=== PATIENT | female | born 1990 | race Caucasian/White ===

== ENCOUNTER 2017-01-03 08:37 | Inpatient (IN) ==
[2017-01-03] MEDS: LACTATED RINGERS 1,000 ML IV SCH (10:00)
[2017-01-03] MEDS ORDERED: CITRIC ACID/SODIUM CITRATE 30 ML UDCUP PO ONE (15:06)
[2017-01-03] MEDS ORDERED: ceFAZolin 2,000 MG in PREMIX 1 EACH IV ONE (15:06)
[2017-01-03] MEDS ORDERED: FAMOTIDINE 20 MG/2 ML VIAL IV ONE (15:06)
[2017-01-03] MEDS ORDERED: LACTATED RINGERS 1,000 ML IV ONE (15:10)
[2017-01-03 15:36] LABS: Basophils % 0.4 % (0.0-0.8); Eosinophils # 0.2 10*3/uL (0.0-0.87); Eosinophils % 2.3 % (0.00-10.9); Hematocrit 31.6 VOL% (35.7-47.0); Immature Granulocytes % 1.8 %; Immature Granulocytes Absolute 0.14 #; Lymphocytes % 25.5 % (21.3-54.2); Mean Corpuscular HGB Conc 34.8 GM/DL (32-36); Mean Corpuscular Hemoglobin 28 PG (27-34); Mean Corpuscular Volume 81.4 FL (87-102); Mean Platelet Volume 10.9 FL (9.6-12.0); Monocytes # 0.5 10*3/uL (0.11-0.8); Monocytes % 6.2 % (1.7-12.7); Neutrophils # 4.9 10*3/uL (1.4-7.4); Neutrophils % 63.8 % (38.7-73.9); Platelet Count 208 T/CUMM (130-400); Red Blood Count 3.88 MC/CUMM (3.8-5.5); White Blood Count 7.8 T/CUMM (4-12)
[2017-01-03] MEDS ORDERED: OXYTOCIN/LR 20 UNIT/1,000 ML BAG IV ONE (16:00)
[2017-01-03 16:06] LABS: Albumin 2.4 G/DL (3.4-5.0); Bilirubin,Total 0.5 MG/DL (0.2-1.0); Calcium 8.4 MG/DL (8.5-10.1); Osmolality,Calculated 274.5 MOS/KG (273-304); Potassium 4.3 MMOL/L (3.5-5.1)
[2017-01-03] MEDS ORDERED: TISSUE ADHESIVE 1 EACH APPLICATOR TOP ONE (17:10)
[2017-01-03 17:29] LABS: Cord Arterial Blood HCO3 17.3 MMOL/L
[2017-01-03 17:33] LABS: Cord Venous Blood PCO2 46.8 MMHG; Cord Venous Blood PO2 20.2
[2017-01-03] MEDS ORDERED: MIDAZOLAM 2 MG/2 ML VIAL ONE (17:54)
[2017-01-03] MEDS ORDERED: MORPHINE 10 MG/10 ML VIAL ONE (17:54)
[2017-01-03] MEDS ORDERED: ONDANSETRON 4 MG/2 ML VIAL ONE (17:55)
[2017-01-03] MEDS ORDERED: ACETAMINOPHEN 1,000 MG/100 ML VIAL IV ONE (17:58)
[2017-01-03] MEDS ORDERED: diphenhydrAMINE 50 MG/1 ML VIAL IV ONE (18:39)
[2017-01-03 18:52] LABS: Apearance,Urine CLEAR (Clear); Bilirubin,Urine Negative (Negative); Blood, Urine Negative (Negative); Glucose,Urine (UA) Negative (Negative); Ketones,Urine Negative (Negative); Mucus,Urine Occasional /LPF (Occasional); Nitrite,Urine Negative (Negative); Protein,Urine Negative; RBC,Urine 2 /HPF (0-4); Urine Color Yellow (Yellow); Urine Specific Gravity 1.014 (1.001-1.035); Urine Urobilinogen < 2.0 EU/DL (0.2-1.0); WBC,Urine 1 /HPF (0-6)
[2017-01-03] MEDS ORDERED: hydrOXYzine HCL 25 MG/1 ML VIAL IM PRN (20:22)
[2017-01-03] MEDS ORDERED: ONDANSETRON 4 MG/2 ML VIAL IV PRN ×2 (20:22→23:05)
[2017-01-03] MEDS ORDERED: HYDROmorphone 2 MG/1 ML VIAL IV PRN (20:22)
[2017-01-03] MEDS ORDERED: diphenhydrAMINE 50 MG/1 ML VIAL IV PRN (20:22)
[2017-01-03] MEDS ORDERED: SODIUM CHLORIDE 0.9% 1,000 ML IV SCH (20:30)
[2017-01-03] MEDS ORDERED: LACTATED RINGERS 1,000 ML IV SCH (20:30)
[2017-01-04] MEDS ORDERED: ceFAZolin 1,000 MG in SYRINGE 1 EACH IV SCH (00:30)
[2017-01-04] MEDS ORDERED: diphenhydrAMINE 50 MG/1 ML VIAL IV PRN (00:46)
[2017-01-04 01:19] LABS: Basophils % 0.4 % (0.0-0.8); Eosinophils # 0.2 10*3/uL (0.0-0.87); Eosinophils % 2.2 % (0.00-10.9); Hemoglobin 9.4 GM/DL (12.0-16.0); Lymphocytes # 2.4 10*3/uL (1.4-4.0); Lymphocytes % 22.7 % (21.3-54.2); Mean Corpuscular HGB Conc 34.8 GM/DL (32-36); Mean Corpuscular Hemoglobin 28 PG (27-34); Mean Corpuscular Volume 80.6 FL (87-102); Mean Platelet Volume 11.2 FL (9.6-12.0); Monocytes # 0.6 10*3/uL (0.11-0.8); Monocytes % 5.4 % (1.7-12.7); Neutrophils # 7.2 10*3/uL (1.4-7.4); Neutrophils % 68.3 % (38.7-73.9); Platelet Count 175 T/CUMM (130-400); Red Blood Count 3.35 MC/CUMM (3.8-5.5); Red Cell Distribution Width 12.9 % (9.3-17.3); White Blood Count 10.5 T/CUMM (4-12)
[2017-01-04] MEDS ORDERED: BENZOCAINE/MENTHOL LOZENGE 18/BOX PO PRN (01:23)
[2017-01-04] MEDS ORDERED: oxyCODONE/ACETAMINOPHEN 5-325 MG TABLET PO PRN ×2 (04:59→21:11)
[2017-01-04] MEDS: LACTATED RINGERS 1,000 ML IV SCH (05:00)
[2017-01-04] MEDS: oxyCODONE/ACETAMINOPHEN 5-325 MG TABLET PO PRN ×4 (05:25→21:19)
[2017-01-04] MEDS ORDERED: BISACODYL 10 MG SUPP RECTAL PRN (07:11)
[2017-01-04] MEDS: ceFAZolin 2,000 MG in PREMIX 1 EACH IV SCH ×2 (08:13→15:29)
[2017-01-04] MEDS: DOCUSATE SODIUM 100 MG CAPSULE PO SCH ×2 (08:54→21:12)
[2017-01-04] MEDS: MULTIVITAMIN (PRENATAL) TABLET PO SCH (08:57)
[2017-01-04] MEDS ORDERED: MAGNESIUM HYDROXIDE SUSP 30 ML UDCUP PO PRN (14:38)
[2017-01-04] MEDS: MAGNESIUM HYDROXIDE SUSP 30 ML UDCUP PO PRN (15:07)
[2017-01-04] MEDS ORDERED: diphenhydrAMINE CAP 25 MG CAPSULE PO PRN (18:30)
[2017-01-04] MEDS: SIMETHICONE CHEW 80 MG TABLET PO PRN (21:12)
[2017-01-04] MEDS ORDERED: IBUPROFEN 800 MG TABLET PO PRN (23:54)
[2017-01-05] MEDS: MAGNESIUM HYDROXIDE SUSP 30 ML UDCUP PO PRN ×2 (04:07→17:29)
[2017-01-05] MEDS: SIMETHICONE CHEW 80 MG TABLET PO PRN ×2 (04:07→21:03)
[2017-01-05] MEDS: oxyCODONE/ACETAMINOPHEN 5-325 MG TABLET PO PRN ×2 (04:08→11:28)
[2017-01-05] MEDS: MULTIVITAMIN (PRENATAL) TABLET PO SCH (09:09)
[2017-01-05] MEDS: DOCUSATE SODIUM 100 MG CAPSULE PO SCH ×2 (09:09→21:02)
[2017-01-05] MEDS ORDERED: ZALEPLON 5 MG CAPSULE PO PRN (22:04)
[2017-01-05] MEDS ORDERED: MAGNESIUM CITRATE 300 ML BOTTLE PO ONE (22:05)
[2017-01-05] MEDS: IBUPROFEN 800 MG TABLET PO PRN (22:53)
[2017-01-06] MEDS ORDERED: ONDANSETRON 4 MG TABLET PO PRN (06:39)
[2017-01-06] MEDS: IBUPROFEN 800 MG TABLET PO PRN (06:44)
[2017-01-06] MEDS: SIMETHICONE CHEW 80 MG TABLET PO PRN (09:08)
[2017-01-06] MEDS: DOCUSATE SODIUM 100 MG CAPSULE PO SCH (09:08)
[2017-01-06] MEDS: MULTIVITAMIN (PRENATAL) TABLET PO SCH (09:09)
[2017-01-06 09:57] VITALS: BP 116/69
[2017-01-06] MEDS: oxyCODONE/ACETAMINOPHEN 5-325 MG TABLET PO PRN (13:01)
== END 2017-01-06 15:00 | disposition home or self-care (01) | DRG 765 ==
LOC: N.LDOUT 08:37 → N.LD 08:38 → N.OB 22:28
PROVIDERS: ADMIT Obstetrics & Gynecology; ATTEND Obstetrics & Gynecology
PROC: LDCSECT (ICD-10-PCS; 2017-01-03 16:00)

== ENCOUNTER 2017-02-12 05:49 | Observation (INO) ==
[2017-02-04 11:13] LABS: Basophils # 0.1 10*3/uL (0.0-0.2); Basophils % 0.5 % (0.0-0.8); Eosinophils # 0.4 10*3/uL (0.0-0.87); Eosinophils % 4.1 % (0.00-10.9); Hematocrit 35.1 VOL% (35.7-47.0); Hemoglobin 11.5 GM/DL (12.0-16.0); Immature Granulocytes % 1.4 %; Immature Granulocytes Absolute 0.13 #; Lymphocytes # 2.1 10*3/uL (1.4-4.0); Lymphocytes % 22.8 % (21.3-54.2); Mean Corpuscular HGB Conc 32.8 GM/DL (32-36); Mean Corpuscular Hemoglobin 27 PG (27-34); Mean Corpuscular Volume 81.4 FL (87-102); Mean Platelet Volume 9.8 FL (9.6-12.0); Monocytes # 0.4 10*3/uL (0.11-0.8); Monocytes % 3.8 % (1.7-12.7); Neutrophils # 6.3 10*3/uL (1.4-7.4); Neutrophils % 67.4 % (38.7-73.9); Platelet Count 300 T/CUMM (130-400); Red Blood Count 4.31 MC/CUMM (3.8-5.5); White Blood Count 9.3 T/CUMM (4-12)
[2017-02-04 11:28] LABS: Apearance,Urine CLEAR (Clear); Bilirubin,Urine Negative (Negative); Blood, Urine Negative (Negative); Glucose,Urine (UA) Negative (Negative); Ketones,Urine Negative (Negative); Nitrite,Urine Negative (Negative); Protein,Urine Negative; RBC,Urine <1 /HPF (0-4); Squamous Epithelial Cell,Urine Occasional /HPF (0-10); Urine Color Straw (Yellow); Urine Specific Gravity 1.008 (1.001-1.035); Urine Urobilinogen < 2.0 EU/DL (0.2-1.0); WBC,Urine <1 /HPF (0-6)
[2017-02-12] MEDS ORDERED: cefOXitin 2,000 MG in SYRINGE 1 EACH IV ONE (06:00)
[2017-02-12] MEDS ORDERED: FAMOTIDINE 20 MG TABLET ONE (07:15)
[2017-02-12] MEDS ORDERED: DIAZEPAM 5 MG TABLET ONE (07:15)
[2017-02-12] MEDS ORDERED: LACTATED RINGERS 1,000 ML IV SCH (07:30)
[2017-02-12] MEDS ORDERED: TISSUE ADHESIVE 1 EACH APPLICATOR TOP ONE (08:02)
[2017-02-12] MEDS ORDERED: PROPOFOL 200 MG/20 ML VIAL IV ONE ×2 (08:26→08:28)
[2017-02-12] MEDS ORDERED: MIDAZOLAM 2 MG/2 ML VIAL ONE ×2 (08:27→08:29)
[2017-02-12] MEDS ORDERED: fentaNYL 100 MCG/2 ML VIAL ONE (08:29)
[2017-02-12] MEDS ORDERED: DEXAMETHASONE 10 MG/1 ML VIAL ONE (08:29)
[2017-02-12] MEDS ORDERED: LORazepam 2 MG/1 ML VIAL ONE (08:29)
[2017-02-12] MEDS ORDERED: SEVOFLURANE 1 UNIT/15 MINUTE INH ONE (08:29)
[2017-02-12] MEDS ORDERED: NEOSTIGMINE 10 MG/10 ML VIAL ONE (08:30)
[2017-02-12] MEDS ORDERED: GLYCOPYRROLATE 0.4 MG/2 ML VIAL ONE (08:30)
[2017-02-12] MEDS ORDERED: SUCCINYLCHOLINE 200 MG/10 ML VIAL ONE (08:30)
[2017-02-12] MEDS ORDERED: ACETAMINOPHEN 1,000 MG/100 ML VIAL IV ONE (08:30)
[2017-02-12] MEDS ORDERED: KETOROLAC 30 MG/1 ML VIAL ONE (08:30)
[2017-02-12] MEDS ORDERED: ROCURONIUM 100 MG/10 ML VIAL IV ONE (08:31)
[2017-02-12] MEDS ORDERED: LACTATED RINGERS 1,000 ML IV ONE (08:31)
[2017-02-12] MEDS ORDERED: LORazepam 2 MG/1 ML VIAL IV ONE (08:35)
[2017-02-12] MEDS ORDERED: MIDAZOLAM 2 MG/2 ML VIAL IV ONE (08:38)
[2017-02-12] MEDS ORDERED: ONDANSETRON 4 MG/2 ML VIAL ONE (09:02)
[2017-02-12] MEDS ORDERED: HYDROmorphone 2 MG/1 ML VIAL ONE (09:02)
[2017-02-12] MEDS ORDERED: HYDROmorphone 2 MG/1 ML VIAL IV PRN (09:06)
[2017-02-12] MEDS ORDERED: ONDANSETRON 4 MG/2 ML VIAL IV PRN (09:06)
[2017-02-12] MEDS ORDERED: LORazepam 2 MG/1 ML VIAL IV PRN (13:31)
[2017-02-12] MEDS ORDERED: levETIRAcetam 500 MG TABLET PO SCH (14:00)
[2017-02-12] MEDS: IBUPROFEN 800 MG TABLET PO PRN (14:22)
[2017-02-12] MEDS: oxyCODONE/ACETAMINOPHEN 5-325 MG TABLET PO PRN ×2 (16:54→21:37)
[2017-02-12] MEDS ORDERED: FAMOTIDINE 20 MG TABLET PO SCH (21:00)
[2017-02-12] MEDS: levETIRAcetam 500 MG TABLET PO SCH (21:36)
[2017-02-13] MEDS: oxyCODONE/ACETAMINOPHEN 5-325 MG TABLET PO PRN ×2 (06:18→11:12)
[2017-02-13] MEDS ORDERED: MULTIVITAMIN (PRENATAL) TABLET PO SCH (09:00)
[2017-02-13 09:08] LABS: Alanine Aminotransferase 15 U/L (13-56); Albumin 3.1 G/DL (3.4-5.0); Alkaline Phosphatase 70 U/L (45-117); Aspartate Amino Transferase 10 U/L (0-37); Bilirubin,Total < 0.39 MG/DL (0.2-1.0); Blood Urea Nitrogen 11 MG/DL (7-18); Calcium 8.6 MG/DL (8.5-10.1); Total Protein 6.3 G/DL (6.4-8.3)
[2017-02-13 09:09] LABS: Glucose 88 MG/DL (74-106); Magnesium 1.8 MG/DL (1.8-2.4); Osmolality,Calculated 278.3 MOS/KG (273-304); Potassium 3.9 MMOL/L (3.5-5.1); Sodium 141 MMOL/L (136-145)
[2017-02-13] MEDS: levETIRAcetam 500 MG TABLET PO SCH (09:28)
[2017-02-13] MEDS: IBUPROFEN 800 MG TABLET PO PRN (09:29)
[2017-02-13 12:23] VITALS: BP 105/69
== END 2017-02-13 13:08 | disposition home or self-care (01) ==
LOC: N.OR 05:49 → N.SDSINP 05:49 → N.2E 13:33 → N.OR 02-13 13:08 → N.2E 02-13 16:05
PROVIDERS: ADMIT Obstetrics & Gynecology; ATTEND Obstetrics & Gynecology

== ENCOUNTER 2018-01-14 01:42 | Observation (INO) ==
[2018-01-14] MEDS ORDERED: FUROSEMIDE 100 MG/10 ML VIAL ONE (02:08)
[2018-01-14] MEDS ORDERED: ONDANSETRON 4 MG/2 ML VIAL IV STA ×3 (02:22→03:58)
[2018-01-14] MEDS ORDERED: HYDROmorphone 2 MG/1 ML VIAL IV ONE ×2 (02:31→03:58)
[2018-01-14 02:34] LABS: Basophils % 0.7 % (0.0-0.8); Eosinophils # 0.3 10*3/uL (0.0-0.87); Eosinophils % 4.7 % (0.00-10.9); Hematocrit 39.4 VOL% (35.7-47.0); Immature Granulocytes % 0.3 %; Immature Granulocytes Absolute 0.02 #; Lymphocytes # 2.1 10*3/uL (1.4-4.0); Lymphocytes % 34.6 % (21.3-54.2); Mean Corpuscular Hemoglobin 28 PG (27-34); Mean Corpuscular Volume 84.2 FL (87-102); Mean Platelet Volume 9.9 FL (9.6-12.0); Monocytes # 0.3 10*3/uL (0.11-0.8); Monocytes % 5.2 % (1.7-12.7); Neutrophils # 3.3 10*3/uL (1.4-7.4); Neutrophils % 54.5 % (38.7-73.9); Platelet Count 240 T/CUMM (130-400); Red Blood Count 4.68 MC/CUMM (3.8-5.5); Red Cell Distribution Width 13.3 % (9.3-17.3)
[2018-01-14 02:42] LABS: Apearance,Urine CLEAR (Clear); Bilirubin,Urine Negative (Negative); Blood, Urine Negative (Negative); Glucose,Urine (UA) Negative (Negative); Ketones,Urine Negative (Negative); Mucus,Urine Occasional /LPF (Occasional); Nitrite,Urine Negative (Negative); Protein,Urine Negative; RBC,Urine 6 /HPF (0-4); Squamous Epithelial Cell,Urine Occasional /HPF (0-10); Urine Color Yellow (Yellow); Urine Specific Gravity 1.016 (1.001-1.035); Urine Urobilinogen < 2.0 EU/DL (0.2-1.0); WBC,Urine 2 /HPF (0-6)
[2018-01-14 02:48] LABS: Alanine Aminotransferase 19 U/L (13-56); Albumin 3.6 G/DL (3.4-5.0); Alkaline Phosphatase 63 U/L (45-117); Aspartate Amino Transferase 16 U/L (0-37); Barbiturates Screen,Urine Negative (Negative); Benzodiazepines Screen,Urine Negative (Negative); Blood Urea Nitrogen 12 MG/DL (7-18); Calcium 8.2 MG/DL (8.5-10.1); Cannabinoid Screen,Urine Negative (Negative); Glucose 95 MG/DL (74-106); INR 1.4; Opiate Screen,Urine Negative (Negative); Osmolality,Calculated 276.5 MOS/KG (273-304); PT Patient Result 14.7 SECS; Partial Thromboplastin Time 39.3 SECS (0-40); Phencyclidine Screen,Urine Negative (Negative); Potassium 3.7 MMOL/L (3.5-5.1); Sodium 139 MMOL/L (136-145); Total Protein 6.9 G/DL (6.4-8.3); Troponin I < 0.015 NG/ML (0.00-0.045)
[2018-01-14] MEDS ORDERED: NICOTINE 21 MG/24 HR PATCH TRANSDERM PRN (03:42)
[2018-01-14] MEDS ORDERED: ACETAMINOPHEN 325 MG TABLET PO PRN (03:42)
[2018-01-14] MEDS ORDERED: PROMETHAZINE 25 MG/1 ML VIAL IM PRN (03:42)
[2018-01-14] MEDS ORDERED: LORazepam 2 MG/1 ML VIAL IV PRN (03:42)
[2018-01-14] MEDS ORDERED: diphenhydrAMINE CAP 25 MG CAPSULE PO PRN (03:42)
[2018-01-14] MEDS ORDERED: SODIUM CHLORIDE 0.9% 1,000 ML IV SCH (04:00)
[2018-01-14 04:52] LABS: Calcium 8.4 MG/DL (8.5-10.1); Osmolality,Calculated 279.3 MOS/KG (273-304); Potassium 3.9 MMOL/L (3.5-5.1)
[2018-01-14] MEDS: ONDANSETRON 4 MG/2 ML VIAL IV PRN ×2 (07:51→12:00)
[2018-01-14] MEDS: MORPHINE 4 MG/1 ML VIAL IV PRN ×2 (07:52→12:01)
[2018-01-14] MEDS ORDERED: PANTOPRAZOLE 40 MG TABLET PO SCH (09:00)
[2018-01-14] MEDS ORDERED: LORazepam 1 MG TABLET PO PRN (15:35)
[2018-01-14 16:40] VITALS: BP 134/70
[2018-01-14] MEDS ORDERED: AMITRIPTYLINE 25 MG TABLET PO SCH (21:00)
[2018-01-14] MEDS ORDERED: busPIRone 5 MG TABLET PO SCH (21:00)
[2018-01-14] MEDS ORDERED: METHOCARBAMOL 750 MG TABLET PO SCH (21:00)
== END 2018-01-14 17:34 | disposition home or self-care (01) ==
LOC: N.ED 01:42 → N.EDINP 01:42 → N.4E 04:29
PROVIDERS: ADMIT Internal Medicine; ATTEND Internal Medicine

== ENCOUNTER 2018-01-28 12:57 | Observation (INO) ==
[2018-01-28] MEDS ORDERED: ONDANSETRON ODT 4 MG TABLET PO STA (14:19)
[2018-01-28] MEDS ORDERED: RIZATRIPTAN ODT 5 MG TABLET PO STA (14:39)
[2018-01-28 14:45] LABS: Basophils # 0.1 10*3/uL (0.0-0.2); Basophils % 0.8 % (0.0-0.8); Eosinophils # 0.2 10*3/uL (0.0-0.87); Eosinophils % 3.2 % (0.00-10.9); Hematocrit 38.2 VOL% (35.7-47.0); Hemoglobin 12.3 GM/DL (12.0-16.0); Immature Granulocytes % 0.2 %; Immature Granulocytes Absolute 0.01 #; Lymphocytes # 1.7 10*3/uL (1.4-4.0); Lymphocytes % 26.9 % (21.3-54.2); Mean Corpuscular HGB Conc 32.2 GM/DL (32-36); Mean Corpuscular Hemoglobin 27 PG (27-34); Mean Corpuscular Volume 84.5 FL (87-102); Mean Platelet Volume 10.5 FL (9.6-12.0); Monocytes # 0.3 10*3/uL (0.11-0.8); Monocytes % 5.3 % (1.7-12.7); Neutrophils % 63.6 % (38.7-73.9); Platelet Count 222 T/CUMM (130-400); Red Blood Count 4.52 MC/CUMM (3.8-5.5); Red Cell Distribution Width 13.5 % (9.3-17.3); White Blood Count 6.3 T/CUMM (4-12)
[2018-01-28 15:06] LABS: Alanine Aminotransferase 22 U/L (13-56); Albumin 3.7 G/DL (3.4-5.0); Alkaline Phosphatase 69 U/L (45-117); Aspartate Amino Transferase 13 U/L (0-37); Bilirubin,Total < 0.39 MG/DL (0.2-1.0); Blood Urea Nitrogen 11 MG/DL (7-18); Calcium 8.4 MG/DL (8.5-10.1); Glucose 83 MG/DL (74-106); Osmolality,Calculated 280.1 MOS/KG (273-304); Potassium 3.7 MMOL/L (3.5-5.1); Sodium 142 MMOL/L (136-145); Total Protein 7.2 G/DL (6.4-8.3)
[2018-01-28] MEDS ORDERED: LORazepam 1 MG TABLET PO PRN (16:09)
[2018-01-28] MEDS ORDERED: BUTALBITAL/ACETAMIN/CAFFEINE 50-325-40 MG TABLET PO PRN (16:09)
[2018-01-28] MEDS ORDERED: ACETAMINOPHEN 325 MG TABLET PO PRN (16:10)
[2018-01-28] MEDS ORDERED: LABETALOL 20 MG/4 ML SYRINGE IV PRN (16:12)
[2018-01-28 16:18] LABS: Platelet Estimate Adequate
[2018-01-28 17:02] LABS: Risk Ratio 3.35; VLDL CHOLESTEROL 18.6 MG/DL
[2018-01-28] MEDS: ONDANSETRON 4 MG TABLET PO SCH (19:52)
[2018-01-28] MEDS ORDERED: ENOXAPARIN 40 MG/0.4 ML SYRINGE SUBCUT SCH (21:00)
[2018-01-28] MEDS ORDERED: AMITRIPTYLINE 25 MG TABLET PO SCH (21:00)
[2018-01-28] MEDS: busPIRone 15 MG TABLET PO SCH (21:19)
[2018-01-28] MEDS: SODIUM CHLORIDE 0.9% 1,000 ML IV SCH (21:20)
[2018-01-28] MEDS: METHOCARBAMOL 750 MG TABLET PO SCH (21:20)
[2018-01-29] MEDS: ONDANSETRON 4 MG TABLET PO SCH ×2 (00:31→06:28)
[2018-01-29 05:59] LABS: Basophils # 0.1 10*3/uL (0.0-0.2); Basophils % 1.1 % (0.0-0.8); Eosinophils # 0.3 10*3/uL (0.0-0.87); Eosinophils % 5.6 % (0.00-10.9); Hematocrit 36.4 VOL% (35.7-47.0); Hemoglobin 11.9 GM/DL (12.0-16.0); Immature Granulocytes % 0.4 %; Immature Granulocytes Absolute 0.02 #; Lymphocytes # 1.7 10*3/uL (1.4-4.0); Mean Corpuscular HGB Conc 32.7 GM/DL (32-36); Mean Corpuscular Hemoglobin 28 PG (27-34); Mean Corpuscular Volume 84.1 FL (87-102); Mean Platelet Volume 9.9 FL (9.6-12.0); Monocytes # 0.3 10*3/uL (0.11-0.8); Neutrophils # 2.4 10*3/uL (1.4-7.4); Neutrophils % 50.9 % (38.7-73.9); Platelet Count 212 T/CUMM (130-400); Red Blood Count 4.33 MC/CUMM (3.8-5.5); Red Cell Distribution Width 13.2 % (9.3-17.3); White Blood Count 4.6 T/CUMM (4-12)
[2018-01-29 06:15] LABS: Calcium 8.1 MG/DL (8.5-10.1); Osmolality,Calculated 277.3 MOS/KG (273-304); Potassium 3.6 MMOL/L (3.5-5.1)
[2018-01-29 06:56] LABS: Apearance,Urine CLEAR (Clear); Bilirubin,Urine Negative (Negative); Blood, Urine Negative (Negative); Glucose,Urine (UA) Negative (Negative); Hyaline Casts,Urine 3 /LPF (0-3); Ketones,Urine 5 mg/dL (Negative); Mucus,Urine Many /LPF (Occasional); Nitrite,Urine Negative (Negative); Protein,Urine Negative; RBC,Urine 1 /HPF (0-4); Squamous Epithelial Cell,Urine Occasional /HPF (0-10); Urine Color Yellow (Yellow); Urine Specific Gravity 1.027 (1.001-1.035); Urine Urobilinogen < 2.0 EU/DL (0.2-1.0); WBC,Urine 2 /HPF (0-6)
[2018-01-29 06:59] LABS: Barbiturates Screen,Urine Positive (Negative); Benzodiazepines Screen,Urine Negative (Negative); Cannabinoid Screen,Urine Negative (Negative); Opiate Screen,Urine Negative (Negative); Phencyclidine Screen,Urine Negative (Negative)
[2018-01-29] MEDS ORDERED: ASPIRIN 325 MG TABLET PO SCH (09:00)
[2018-01-29] MEDS ORDERED: PANTOPRAZOLE 40 MG TABLET PO SCH (09:00)
[2018-01-29] MEDS: SODIUM CHLORIDE 0.9% 1,000 ML IV SCH ×2 (10:22→13:08)
[2018-01-29] MEDS: busPIRone 15 MG TABLET PO SCH (10:22)
[2018-01-29] MEDS: METHOCARBAMOL 750 MG TABLET PO SCH (10:23)
[2018-01-29 12:02] VITALS: BP 107/66
== END 2018-01-29 11:34 | disposition home or self-care (01) ==
LOC: EDBD → EDUNIT# → N.ED 12:57 → N.EDINP 12:57 → SUATTDRO 16:10 → N.5E 18:27
PROVIDERS: ADMIT Internal Medicine; ATTEND Internal Medicine Infectious Disease

== ENCOUNTER 2019-11-12 14:27 | Inpatient (IN) ==
[2019-11-12] MEDS ORDERED: PIPERACILLIN/TAZOBACTAM 3,375 MG in SODIUM CHLORIDE 0.9% 100 ML IV STA (14:55)
[2019-11-12 15:32] LABS: Basophils # 0.1 10*3/uL (0.0-0.2); Basophils % 0.6 % (0.0-0.8); Eosinophils # 0.2 10*3/uL (0.0-0.87); Eosinophils % 2.2 % (0.00-10.9); Hematocrit 41.6 VOL% (35.7-47.0); Immature Granulocytes % 0.5 %; Immature Granulocytes Absolute 0.05 #; Lymphocytes # 2.2 10*3/uL (1.4-4.0); Lymphocytes % 21.5 % (21.3-54.2); Mean Corpuscular HGB Conc 33.7 GM/DL (32-36); Mean Corpuscular Volume 86.1 FL (87-102); Monocytes % 5.8 % (1.7-12.7); Neutrophils % 69.4 % (38.7-73.9); Platelet Count 215 T/CUMM (130-400); Red Blood Count 4.83 MC/CUMM (3.8-5.5); White Blood Count 10.1 T/CUMM (4-12)
[2019-11-12 15:48] LABS: Calcium 9.1 MG/DL (8.5-10.1); Osmolality,Calculated 271.7 MOS/KG (273-304)
[2019-11-12] MEDS ORDERED: DEXTROSE 50% 25 GM/50 ML VIAL IV PRN (17:21)
[2019-11-12] MEDS ORDERED: GLUCAGON 1 MG VIAL IM PRN (17:21)
[2019-11-12] MEDS ORDERED: KETOROLAC 30 MG/1 ML VIAL IV STA (17:21)
[2019-11-12] MEDS ORDERED: MORPHINE 4 MG/1 ML VIAL IV STA (17:21)
[2019-11-12] MEDS ORDERED: ONDANSETRON 4 MG/2 ML VIAL ONE (17:27)
[2019-11-12] MEDS ORDERED: ONDANSETRON 4 MG/2 ML VIAL IV STA (17:30)
[2019-11-12] MEDS: VANCOMYCIN INJ 1,500 MG in SODIUM CHLORIDE 0.9% 500 ML IV STA ×2 (18:30→18:55)
[2019-11-12] MEDS ORDERED: METHOCARBAMOL 750 MG TABLET PO PRN (20:15)
[2019-11-12] MEDS: FAMOTIDINE 20 MG TABLET PO SCH (20:20)
[2019-11-12] MEDS: busPIRone 15 MG TABLET PO SCH (20:20)
[2019-11-12] MEDS: LORazepam 1 MG TABLET PO SCH (20:20)
[2019-11-12] MEDS: ENOXAPARIN 40 MG/0.4 ML SYRINGE SUBCUT SCH (20:20)
[2019-11-12] MEDS: MORPHINE 4 MG/1 ML VIAL IV PRN (20:20)
[2019-11-12 22:54] LABS: Bilirubin,Urine Negative (Negative); Blood, Urine Negative (Negative); Calcium Oxalate Crystals,Urine Many /HPF (Few); Glucose,Urine (UA) Negative (Negative); Hyaline Casts,Urine 9 /LPF (0-3); Ketones,Urine 20 mg/dL (Negative); Mucus,Urine Many /LPF (Occasional); Nitrite,Urine Negative (Negative); Protein,Urine 100 MG/DL; RBC,Urine 11 /HPF (0-4); Squamous Epithelial Cell,Urine Occasional /HPF (0-10); Urine Appearance Slightly Hazy (Clear); Urine Color Amber (Yellow); Urine Specific Gravity 1.034 (1.001-1.035); Urine Urobilinogen < 2.0 EU/DL (0.2-1.0); WBC,Urine 4 /HPF (0-6)
[2019-11-13] MEDS: MORPHINE 4 MG/1 ML VIAL IV PRN ×5 (02:33→19:22)
[2019-11-13 05:55] LABS: Basophils % 0.6 % (0.0-0.8); Eosinophils # 0.3 10*3/uL (0.0-0.87); Eosinophils % 4.8 % (0.00-10.9); Hematocrit 34.6 VOL% (35.7-47.0); Hemoglobin 11.8 GM/DL (12.0-16.0); Immature Granulocytes % 0.2 %; Immature Granulocytes Absolute 0.01 #; Lymphocytes # 1.6 10*3/uL (1.4-4.0); Lymphocytes % 24.3 % (21.3-54.2); Mean Corpuscular HGB Conc 34.1 GM/DL (32-36); Mean Corpuscular Volume 84.6 FL (87-102); Mean Platelet Volume 10.1 FL (9.6-12.0); Monocytes % 6.7 % (1.7-12.7); Neutrophils % 63.4 % (38.7-73.9); Platelet Count 194 T/CUMM (130-400); Red Blood Count 4.09 MC/CUMM (3.8-5.5); Red Cell Distribution Width 12.8 % (9.3-17.3); White Blood Count 6.5 T/CUMM (4-12)
[2019-11-13 06:14] LABS: Calcium 8.7 MG/DL (8.5-10.1); Osmolality,Calculated 270.7 MOS/KG (273-304); Thyroid Stimulating Hormone 2.73 uIU/ml (0.358-3.74)
[2019-11-13] MEDS: busPIRone 15 MG TABLET PO SCH ×2 (08:05→21:04)
[2019-11-13] MEDS: LORazepam 1 MG TABLET PO SCH ×2 (08:05→21:03)
[2019-11-13] MEDS: PIPERACILLIN/TAZOBACTAM 3,375 MG in SODIUM CHLORIDE 0.9% 100 ML IV SCH ×2 (08:06→16:00)
[2019-11-13] MEDS: VANCOMYCIN INJ 2,000 MG in SODIUM CHLORIDE 0.9% 500 ML IV SCH ×2 (12:05→22:12)
[2019-11-13] MEDS: ONDANSETRON 4 MG/2 ML VIAL IV PRN ×2 (16:00→20:10)
[2019-11-13] MEDS: FAMOTIDINE 20 MG TABLET PO SCH (21:04)
[2019-11-13] MEDS: ENOXAPARIN 40 MG/0.4 ML SYRINGE SUBCUT SCH (21:05)
[2019-11-14] MEDS: PIPERACILLIN/TAZOBACTAM 3,375 MG in SODIUM CHLORIDE 0.9% 100 ML IV SCH ×3 (02:33→16:02)
[2019-11-14] MEDS: MORPHINE 4 MG/1 ML VIAL IV PRN ×3 (02:44→16:02)
[2019-11-14 06:14] LABS: Basophils % 0.7 % (0.0-0.8); Eosinophils # 0.3 10*3/uL (0.0-0.87); Eosinophils % 5.3 % (0.00-10.9); Hematocrit 33.5 VOL% (35.7-47.0); Hemoglobin 11.2 GM/DL (12.0-16.0); Immature Granulocytes % 0.4 %; Immature Granulocytes Absolute 0.02 #; Lymphocytes # 1.1 10*3/uL (1.4-4.0); Lymphocytes % 19.8 % (21.3-54.2); Mean Corpuscular HGB Conc 33.4 GM/DL (32-36); Mean Corpuscular Volume 86.8 FL (87-102); Mean Platelet Volume 9.8 FL (9.6-12.0); Monocytes % 6.7 % (1.7-12.7); Neutrophils % 67.1 % (38.7-73.9); Platelet Count 178 T/CUMM (130-400); Red Blood Count 3.86 MC/CUMM (3.8-5.5); Red Cell Distribution Width 12.8 % (9.3-17.3); White Blood Count 5.5 T/CUMM (4-12)
[2019-11-14 06:34] LABS: Calcium 8.5 MG/DL (8.5-10.1); Osmolality,Calculated 270.8 MOS/KG (273-304)
[2019-11-14] MEDS: busPIRone 15 MG TABLET PO SCH ×2 (08:02→20:44)
[2019-11-14] MEDS: LORazepam 1 MG TABLET PO SCH ×2 (08:02→20:44)
[2019-11-14] MEDS: CHLORHEXIDINE 0.12% ORAL RINSE 60 ML BOTTLE SWISH/SPIT SCH ×2 (09:44→20:58)
[2019-11-14] MEDS: DOCUSATE SODIUM 100 MG CAPSULE PO PRN ×2 (16:02→20:45)
[2019-11-14] MEDS: ONDANSETRON 4 MG/2 ML VIAL IV PRN (18:10)
[2019-11-14] MEDS: FAMOTIDINE 20 MG TABLET PO SCH (20:44)
[2019-11-14] MEDS: ENOXAPARIN 40 MG/0.4 ML SYRINGE SUBCUT SCH (20:47)
[2019-11-15] MEDS: PIPERACILLIN/TAZOBACTAM 3,375 MG in SODIUM CHLORIDE 0.9% 100 ML IV SCH ×3 (00:19→15:51)
[2019-11-15 05:55] LABS: Basophils % 0.5 % (0.0-0.8); Eosinophils # 0.4 10*3/uL (0.0-0.87); Eosinophils % 6.6 % (0.00-10.9); Hematocrit 34.9 VOL% (35.7-47.0); Hemoglobin 11.8 GM/DL (12.0-16.0); Immature Granulocytes % 0.4 %; Immature Granulocytes Absolute 0.02 #; Lymphocytes # 1.1 10*3/uL (1.4-4.0); Mean Corpuscular HGB Conc 33.8 GM/DL (32-36); Mean Corpuscular Volume 85.5 FL (87-102); Monocytes % 6.6 % (1.7-12.7); Neutrophils % 65.9 % (38.7-73.9); Platelet Count 183 T/CUMM (130-400); Red Blood Count 4.08 MC/CUMM (3.8-5.5); Red Cell Distribution Width 12.8 % (9.3-17.3); White Blood Count 5.5 T/CUMM (4-12)
[2019-11-15 06:34] LABS: Calcium 8.4 MG/DL (8.5-10.1); Osmolality,Calculated 277.5 MOS/KG (273-304)
[2019-11-15] MEDS: ONDANSETRON 4 MG/2 ML VIAL IV PRN ×3 (08:23→20:45)
[2019-11-15] MEDS: MORPHINE 4 MG/1 ML VIAL IV PRN ×3 (08:24→20:45)
[2019-11-15] MEDS: busPIRone 15 MG TABLET PO SCH ×2 (08:24→20:45)
[2019-11-15] MEDS: CHLORHEXIDINE 0.12% ORAL RINSE 60 ML BOTTLE SWISH/SPIT SCH ×2 (08:24→20:45)
[2019-11-15] MEDS: LORazepam 1 MG TABLET PO SCH ×2 (08:24→20:45)
[2019-11-15] MEDS: SODIUM CHLORIDE 0.9% 1,000 ML IV SCH ×2 (08:43→22:50)
[2019-11-15] MEDS ORDERED: MAGNESIUM HYDROXIDE SUSP 30 ML UDCUP PO PRN (09:19)
[2019-11-15] MEDS: POLYETHYLENE GLYCOL POWDER 17 GM PACK PO SCH (10:53)
[2019-11-15] MEDS: FAMOTIDINE 20 MG TABLET PO SCH (20:45)
[2019-11-15] MEDS: ENOXAPARIN 40 MG/0.4 ML SYRINGE SUBCUT SCH (20:45)
[2019-11-16] MEDS: PIPERACILLIN/TAZOBACTAM 3,375 MG in SODIUM CHLORIDE 0.9% 100 ML IV SCH ×4 (00:55→23:50)
[2019-11-16] MEDS: SODIUM CHLORIDE 0.9% 1,000 ML IV SCH ×3 (01:17→16:56)
[2019-11-16 06:04] LABS: Basophils % 0.7 % (0.0-0.8); Eosinophils # 0.4 10*3/uL (0.0-0.87); Eosinophils % 6.1 % (0.00-10.9); Hematocrit 33.1 VOL% (35.7-47.0); Hemoglobin 11.2 GM/DL (12.0-16.0); Immature Granulocytes % 0.5 %; Immature Granulocytes Absolute 0.03 #; Lymphocytes # 1.3 10*3/uL (1.4-4.0); Lymphocytes % 20.8 % (21.3-54.2); Mean Corpuscular HGB Conc 33.8 GM/DL (32-36); Mean Corpuscular Volume 87.1 FL (87-102); Mean Platelet Volume 9.9 FL (9.6-12.0); Monocytes % 7.3 % (1.7-12.7); Neutrophils % 64.6 % (38.7-73.9); Platelet Count 188 T/CUMM (130-400); Red Cell Distribution Width 12.8 % (9.3-17.3)
[2019-11-16] MEDS: ONDANSETRON 4 MG/2 ML VIAL IV PRN ×3 (06:10→16:43)
[2019-11-16 06:29] LABS: Osmolality,Calculated 280.4 MOS/KG (273-304)
[2019-11-16] MEDS: CHLORHEXIDINE 0.12% ORAL RINSE 60 ML BOTTLE SWISH/SPIT SCH ×2 (09:15→20:48)
[2019-11-16] MEDS: HEPARIN 5,000 UNIT/1 ML VIAL SUBCUT SCH ×2 (09:15→16:44)
[2019-11-16] MEDS: busPIRone 15 MG TABLET PO SCH ×2 (09:17→20:48)
[2019-11-16] MEDS: POLYETHYLENE GLYCOL POWDER 17 GM PACK PO SCH (09:17)
[2019-11-16] MEDS: LORazepam 1 MG TABLET PO SCH ×2 (09:17→20:48)
[2019-11-16] MEDS: MORPHINE 4 MG/1 ML VIAL IV PRN ×2 (10:11→20:49)
[2019-11-16] MEDS: ACETAMINOPHEN 325 MG TABLET PO PRN (17:16)
[2019-11-16] MEDS: FAMOTIDINE 20 MG TABLET PO SCH (20:48)
[2019-11-17] MEDS: SODIUM CHLORIDE 0.9% 1,000 ML IV SCH ×3 (00:59→16:33)
[2019-11-17] MEDS: HEPARIN 5,000 UNIT/1 ML VIAL SUBCUT SCH ×3 (01:00→16:17)
[2019-11-17 05:57] LABS: Basophils % 0.6 % (0.0-0.8); Eosinophils # 0.4 10*3/uL (0.0-0.87); Eosinophils % 6.6 % (0.00-10.9); Hemoglobin 10.5 GM/DL (12.0-16.0); Immature Granulocytes % 0.4 %; Immature Granulocytes Absolute 0.03 #; Lymphocytes # 0.9 10*3/uL (1.4-4.0); Lymphocytes % 13.8 % (21.3-54.2); Mean Corpuscular HGB Conc 32.8 GM/DL (32-36); Mean Corpuscular Volume 87.2 FL (87-102); Mean Platelet Volume 10.1 FL (9.6-12.0); Monocytes % 7.3 % (1.7-12.7); Neutrophils % 71.3 % (38.7-73.9); Platelet Count 182 T/CUMM (130-400); Red Blood Count 3.67 MC/CUMM (3.8-5.5); Red Cell Distribution Width 12.6 % (9.3-17.3); White Blood Count 6.7 T/CUMM (4-12)
[2019-11-17 06:18] LABS: Calcium 7.8 MG/DL (8.5-10.1); Osmolality,Calculated 283.3 MOS/KG (273-304)
[2019-11-17] MEDS: POLYETHYLENE GLYCOL POWDER 17 GM PACK PO SCH (08:45)
[2019-11-17] MEDS: PIPERACILLIN/TAZOBACTAM 3,375 MG in SODIUM CHLORIDE 0.9% 100 ML IV SCH ×2 (08:46→16:18)
[2019-11-17] MEDS: CHLORHEXIDINE 0.12% ORAL RINSE 60 ML BOTTLE SWISH/SPIT SCH ×2 (08:46→20:54)
[2019-11-17] MEDS: LORazepam 1 MG TABLET PO SCH ×2 (08:46→20:52)
[2019-11-17] MEDS: busPIRone 15 MG TABLET PO SCH ×2 (08:46→20:52)
[2019-11-17] MEDS: MORPHINE 4 MG/1 ML VIAL IV PRN ×2 (09:00→16:33)
[2019-11-17] MEDS: ONDANSETRON 4 MG/2 ML VIAL IV PRN ×2 (09:00→16:33)
[2019-11-17 10:45] LABS: Hepatitis B Core IgM Quant 0.07 Index; Hepatitis B Surface Ag Quant < 0.10 Index; Hepatitis B Surface Ag Result Negative (Negative); Hepatitis C Virus Ab Quant 0.12 Index; Hepatitis C Virus Ab Result Negative (Negative)
[2019-11-17 16:35] LABS: Bacteria,Urine Occasional /HPF (Few); Bilirubin,Urine Negative (Negative); Blood, Urine Negative (Negative); Glucose,Urine (UA) Negative (Negative); Ketones,Urine Negative (Negative); Nitrite,Urine Negative (Negative); Protein,Urine Negative; RBC,Urine 5 /HPF (0-4); Squamous Epithelial Cell,Urine Occasional /HPF (0-10); Urine Appearance CLEAR (Clear); Urine Color Colorless (Yellow); Urine Specific Gravity 1.004 (1.001-1.035); Urine Urobilinogen < 2.0 EU/DL (0.2-1.0); WBC,Urine 4 /HPF (0-6)
[2019-11-17] MEDS: FAMOTIDINE 20 MG TABLET PO SCH (20:52)
[2019-11-18] MEDS: SODIUM CHLORIDE 0.9% 1,000 ML IV SCH ×2 (00:42→09:09)
[2019-11-18] MEDS: HEPARIN 5,000 UNIT/1 ML VIAL SUBCUT SCH ×3 (00:42→17:04)
[2019-11-18] MEDS: PIPERACILLIN/TAZOBACTAM 3,375 MG in SODIUM CHLORIDE 0.9% 100 ML IV SCH ×3 (00:42→17:04)
[2019-11-18 05:55] LABS: Basophils % 0.5 % (0.0-0.8); Eosinophils # 0.5 10*3/uL (0.0-0.87); Eosinophils % 7.3 % (0.00-10.9); Hematocrit 30.3 VOL% (35.7-47.0); Hemoglobin 9.9 GM/DL (12.0-16.0); Immature Granulocytes % 0.3 %; Immature Granulocytes Absolute 0.02 #; Lymphocytes % 14.9 % (21.3-54.2); Mean Corpuscular HGB Conc 32.7 GM/DL (32-36); Mean Corpuscular Volume 85.8 FL (87-102); Monocytes % 5.9 % (1.7-12.7); Neutrophils % 71.1 % (38.7-73.9); Platelet Count 177 T/CUMM (130-400); Red Blood Count 3.53 MC/CUMM (3.8-5.5); Red Cell Distribution Width 12.9 % (9.3-17.3); White Blood Count 6.4 T/CUMM (4-12)
[2019-11-18 06:14] LABS: Calcium 8.3 MG/DL (8.5-10.1); Osmolality,Calculated 285.1 MOS/KG (273-304)
[2019-11-18] MEDS: LORazepam 1 MG TABLET PO SCH ×2 (09:09→21:16)
[2019-11-18] MEDS: POLYETHYLENE GLYCOL POWDER 17 GM PACK PO SCH (09:09)
[2019-11-18] MEDS: busPIRone 15 MG TABLET PO SCH ×2 (09:09→21:17)
[2019-11-18] MEDS: CHLORHEXIDINE 0.12% ORAL RINSE 60 ML BOTTLE SWISH/SPIT SCH ×2 (09:10→21:17)
[2019-11-18] MEDS: ONDANSETRON 4 MG/2 ML VIAL IV PRN (10:09)
[2019-11-18] MEDS ORDERED: INFLUENZA VIRUS VACCINE 0.5 ML SYRINGE IM ONE (10:27)
[2019-11-18] MEDS: NACL 0.45% IV SCH (13:24)
[2019-11-18] MEDS: DEXTROSE 5% IV SCH (13:24)
[2019-11-18] MEDS: SODIUM BICARB IV SCH (13:24)
[2019-11-18] MEDS: MULTIVITAMIN IV SCH (13:24)
[2019-11-18] MEDS: PROMETHAZINE 25 MG TABLET PO PRN (14:57)
[2019-11-18] MEDS: FAMOTIDINE 20 MG TABLET PO SCH (21:16)
[2019-11-19] MEDS: PIPERACILLIN/TAZOBACTAM 3,375 MG in SODIUM CHLORIDE 0.9% 100 ML IV SCH ×3 (01:26→16:49)
[2019-11-19] MEDS: HEPARIN 5,000 UNIT/1 ML VIAL SUBCUT SCH ×3 (01:50→16:35)
[2019-11-19 05:33] LABS: Basophils # 0.1 10*3/uL (0.0-0.2); Basophils % 0.8 % (0.0-0.8); Eosinophils # 0.5 10*3/uL (0.0-0.87); Eosinophils % 8.4 % (0.00-10.9); Hematocrit 28.5 VOL% (35.7-47.0); Hemoglobin 9.7 GM/DL (12.0-16.0); Immature Granulocytes % 0.5 %; Immature Granulocytes Absolute 0.03 #; Lymphocytes # 0.9 10*3/uL (1.4-4.0); Lymphocytes % 14.7 % (21.3-54.2); Mean Corpuscular Volume 84.8 FL (87-102); Mean Platelet Volume 9.8 FL (9.6-12.0); Monocytes % 5.3 % (1.7-12.7); Neutrophils % 70.3 % (38.7-73.9); Platelet Count 177 T/CUMM (130-400); Red Blood Count 3.36 MC/CUMM (3.8-5.5); Red Cell Distribution Width 12.9 % (9.3-17.3); White Blood Count 6.2 T/CUMM (4-12)
[2019-11-19] MEDS: LORazepam 1 MG TABLET PO SCH ×2 (09:05→21:06)
[2019-11-19] MEDS: CHLORHEXIDINE 0.12% ORAL RINSE 60 ML BOTTLE SWISH/SPIT SCH ×2 (09:05→21:55)
[2019-11-19] MEDS: busPIRone 15 MG TABLET PO SCH ×2 (09:05→21:05)
[2019-11-19] MEDS: POLYETHYLENE GLYCOL POWDER 17 GM PACK PO SCH (09:05)
[2019-11-19] MEDS: amLODIPine 5 MG TABLET PO SCH (11:21)
[2019-11-19] MEDS: SODIUM BICARB IV SCH (13:39)
[2019-11-19] MEDS: MULTIVITAMIN IV SCH (13:39)
[2019-11-19] MEDS: NACL 0.45% IV SCH (13:39)
[2019-11-19] MEDS: DEXTROSE 5% IV SCH (13:39)
[2019-11-19] MEDS: FAMOTIDINE 20 MG TABLET PO SCH (21:55)
[2019-11-20] MEDS: PIPERACILLIN/TAZOBACTAM 3,375 MG in SODIUM CHLORIDE 0.9% 100 ML IV SCH ×3 (00:46→16:02)
[2019-11-20] MEDS: HEPARIN 5,000 UNIT/1 ML VIAL SUBCUT SCH ×3 (00:46→17:11)
[2019-11-20 05:52] LABS: Basophils % 0.5 % (0.0-0.8); Eosinophils # 0.5 10*3/uL (0.0-0.87); Eosinophils % 8.2 % (0.00-10.9); Hematocrit 29.1 VOL% (35.7-47.0); Hemoglobin 9.8 GM/DL (12.0-16.0); Immature Granulocytes % 0.5 %; Immature Granulocytes Absolute 0.03 #; Lymphocytes % 17.5 % (21.3-54.2); Mean Corpuscular HGB Conc 33.7 GM/DL (32-36); Mean Corpuscular Volume 83.4 FL (87-102); Mean Platelet Volume 9.8 FL (9.6-12.0); Monocytes % 4.8 % (1.7-12.7); Neutrophils % 68.5 % (38.7-73.9); Platelet Count 199 T/CUMM (130-400); Red Blood Count 3.49 MC/CUMM (3.8-5.5); Red Cell Distribution Width 12.8 % (9.3-17.3); White Blood Count 5.8 T/CUMM (4-12)
[2019-11-20 06:07] LABS: Calcium 8.5 MG/DL (8.5-10.1); Osmolality,Calculated 289.1 MOS/KG (273-304)
[2019-11-20] MEDS: PROMETHAZINE 25 MG TABLET PO PRN (08:03)
[2019-11-20] MEDS: busPIRone 15 MG TABLET PO SCH ×2 (08:04→20:35)
[2019-11-20] MEDS: POLYETHYLENE GLYCOL POWDER 17 GM PACK PO SCH (08:05)
[2019-11-20] MEDS: amLODIPine 5 MG TABLET PO SCH (08:05)
[2019-11-20] MEDS: CHLORHEXIDINE 0.12% ORAL RINSE 60 ML BOTTLE SWISH/SPIT SCH ×2 (08:05→20:35)
[2019-11-20] MEDS: ACETAMINOPHEN 325 MG TABLET PO PRN ×2 (08:50→15:03)
[2019-11-20] MEDS ORDERED: FUROSEMIDE 40 MG/4 ML VIAL IV ONE (08:59)
[2019-11-20] MEDS: FAMOTIDINE 20 MG TABLET PO SCH (20:35)
[2019-11-20] MEDS: LORazepam 1 MG TABLET PO SCH (22:50)
[2019-11-21] MEDS: HEPARIN 5,000 UNIT/1 ML VIAL SUBCUT SCH ×3 (00:09→16:40)
[2019-11-21 05:05] LABS: Basophils % 0.7 % (0.0-0.8); Eosinophils # 0.5 10*3/uL (0.0-0.87); Eosinophils % 8.6 % (0.00-10.9); Hematocrit 31.6 VOL% (35.7-47.0); Hemoglobin 10.8 GM/DL (12.0-16.0); Immature Granulocytes % 1.1 %; Immature Granulocytes Absolute 0.06 #; Lymphocytes # 1.1 10*3/uL (1.4-4.0); Lymphocytes % 19.8 % (21.3-54.2); Mean Corpuscular HGB Conc 34.2 GM/DL (32-36); Mean Corpuscular Volume 83.8 FL (87-102); Mean Platelet Volume 9.8 FL (9.6-12.0); Monocytes % 5.9 % (1.7-12.7); Neutrophils % 63.9 % (38.7-73.9); Platelet Count 224 T/CUMM (130-400); Red Blood Count 3.77 MC/CUMM (3.8-5.5); Red Cell Distribution Width 12.8 % (9.3-17.3); White Blood Count 5.6 T/CUMM (4-12)
[2019-11-21 05:23] LABS: Calcium 8.8 MG/DL (8.5-10.1); Osmolality,Calculated 288.1 MOS/KG (273-304)
[2019-11-21] MEDS: LORazepam 1 MG TABLET PO SCH ×2 (08:21→21:40)
[2019-11-21] MEDS: busPIRone 15 MG TABLET PO SCH ×2 (08:22→21:40)
[2019-11-21] MEDS: CHLORHEXIDINE 0.12% ORAL RINSE 60 ML BOTTLE SWISH/SPIT SCH ×2 (08:22→21:50)
[2019-11-21] MEDS: POLYETHYLENE GLYCOL POWDER 17 GM PACK PO SCH (08:22)
[2019-11-21] MEDS: amLODIPine 5 MG TABLET PO SCH (08:22)
[2019-11-21] MEDS ORDERED: POTASSIUM CHLORIDE 20 MEQ TABLET PO ONE (08:44)
[2019-11-21 19:18] LABS: Calcium 8.7 MG/DL (8.5-10.1); Osmolality,Calculated 281.7 MOS/KG (273-304)
[2019-11-21] MEDS: FAMOTIDINE 20 MG TABLET PO SCH (21:40)
[2019-11-22] MEDS: HEPARIN 5,000 UNIT/1 ML VIAL SUBCUT SCH ×3 (00:43→17:10)
[2019-11-22 05:07] LABS: Basophils # 0.1 10*3/uL (0.0-0.2); Basophils % 1.2 % (0.0-0.8); Eosinophils # 0.5 10*3/uL (0.0-0.87); Eosinophils % 8.3 % (0.00-10.9); Hematocrit 34.5 VOL% (35.7-47.0); Hemoglobin 12.2 GM/DL (12.0-16.0); Immature Granulocytes % 1.4 %; Immature Granulocytes Absolute 0.08 #; Lymphocytes # 1.5 10*3/uL (1.4-4.0); Lymphocytes % 25.4 % (21.3-54.2); Mean Corpuscular HGB Conc 35.4 GM/DL (32-36); Mean Corpuscular Volume 81.2 FL (87-102); Mean Platelet Volume 9.5 FL (9.6-12.0); Monocytes % 5.5 % (1.7-12.7); Neutrophils % 58.2 % (38.7-73.9); Platelet Count 223 T/CUMM (130-400); Red Blood Count 4.25 MC/CUMM (3.8-5.5); Red Cell Distribution Width 12.9 % (9.3-17.3); White Blood Count 5.9 T/CUMM (4-12)
[2019-11-22 05:24] LABS: Calcium 8.2 MG/DL (8.5-10.1); Osmolality,Calculated 285.4 MOS/KG (273-304)
[2019-11-22] MEDS ORDERED: POTASSIUM CHLORIDE 20 MEQ TABLET PO ONE (08:42)
[2019-11-22] MEDS: amLODIPine 5 MG TABLET PO SCH (09:38)
[2019-11-22] MEDS: LORazepam 1 MG TABLET PO SCH ×2 (09:38→21:38)
[2019-11-22] MEDS: CHLORHEXIDINE 0.12% ORAL RINSE 60 ML BOTTLE SWISH/SPIT SCH ×2 (09:38→21:38)
[2019-11-22] MEDS: busPIRone 15 MG TABLET PO SCH ×2 (09:38→21:38)
[2019-11-22] MEDS: POLYETHYLENE GLYCOL POWDER 17 GM PACK PO SCH (10:30)
[2019-11-22] MEDS: POTASSIUM CHLORIDE 20 MEQ TABLET PO PRN ×4 (11:35→17:10)
[2019-11-22] MEDS: FAMOTIDINE 20 MG TABLET PO SCH (21:38)
[2019-11-22] MEDS: ACETAMINOPHEN 325 MG TABLET PO PRN (21:38)
[2019-11-23] MEDS: HEPARIN 5,000 UNIT/1 ML VIAL SUBCUT SCH ×3 (02:31→16:12)
[2019-11-23 08:40] LABS: Basophils # 0.1 10*3/uL (0.0-0.2); Basophils % 1.1 % (0.0-0.8); Eosinophils # 0.5 10*3/uL (0.0-0.87); Eosinophils % 6.9 % (0.00-10.9); Hematocrit 40.4 VOL% (35.7-47.0); Hemoglobin 13.9 GM/DL (12.0-16.0); Immature Granulocytes % 1.5 %; Lymphocytes # 1.4 10*3/uL (1.4-4.0); Mean Corpuscular HGB Conc 34.4 GM/DL (32-36); Neutrophils % 64.5 % (38.7-73.9); Platelet Count 250 T/CUMM (130-400); Red Blood Count 4.81 MC/CUMM (3.8-5.5); Red Cell Distribution Width 13.1 % (9.3-17.3); White Blood Count 6.6 T/CUMM (4-12)
[2019-11-23 09:03] LABS: Calcium 8.9 MG/DL (8.5-10.1); Osmolality,Calculated 288.4 MOS/KG (273-304)
[2019-11-23] MEDS: busPIRone 15 MG TABLET PO SCH ×2 (09:17→20:28)
[2019-11-23] MEDS: LORazepam 1 MG TABLET PO SCH ×2 (09:18→20:28)
[2019-11-23] MEDS: amLODIPine 5 MG TABLET PO SCH (09:18)
[2019-11-23] MEDS: POTASSIUM CHLORIDE 20 MEQ TABLET PO PRN (09:18)
[2019-11-23] MEDS: POLYETHYLENE GLYCOL POWDER 17 GM PACK PO SCH (09:23)
[2019-11-23] MEDS: CHLORHEXIDINE 0.12% ORAL RINSE 60 ML BOTTLE SWISH/SPIT SCH ×2 (10:49→20:28)
[2019-11-23] MEDS: FAMOTIDINE 20 MG TABLET PO SCH (20:28)
[2019-11-23] MEDS: ACETAMINOPHEN 325 MG TABLET PO PRN (20:29)
[2019-11-24] MEDS: HEPARIN 5,000 UNIT/1 ML VIAL SUBCUT SCH ×2 (00:33→09:45)
[2019-11-24 05:50] LABS: Basophils # 0.1 10*3/uL (0.0-0.2); Basophils % 1.1 % (0.0-0.8); Eosinophils # 0.5 10*3/uL (0.0-0.87); Eosinophils % 7.7 % (0.00-10.9); Hematocrit 38.9 VOL% (35.7-47.0); Hemoglobin 13.2 GM/DL (12.0-16.0); Immature Granulocytes % 1.6 %; Lymphocytes # 2.1 10*3/uL (1.4-4.0); Lymphocytes % 32.2 % (21.3-54.2); Mean Corpuscular HGB Conc 33.9 GM/DL (32-36); Mean Corpuscular Volume 84.2 FL (87-102); Mean Platelet Volume 9.5 FL (9.6-12.0); Monocytes % 5.9 % (1.7-12.7); Neutrophils % 51.5 % (38.7-73.9); Platelet Count 250 T/CUMM (130-400); Red Blood Count 4.62 MC/CUMM (3.8-5.5); Red Cell Distribution Width 13.1 % (9.3-17.3); White Blood Count 6.4 T/CUMM (4-12)
[2019-11-24 06:08] LABS: Calcium 8.8 MG/DL (8.5-10.1); Osmolality,Calculated 289.3 MOS/KG (273-304)
[2019-11-24] MEDS: amLODIPine 5 MG TABLET PO SCH (09:45)
[2019-11-24] MEDS: busPIRone 15 MG TABLET PO SCH (09:45)
[2019-11-24] MEDS: LORazepam 1 MG TABLET PO SCH (09:45)
[2019-11-24] MEDS: CHLORHEXIDINE 0.12% ORAL RINSE 60 ML BOTTLE SWISH/SPIT SCH (09:45)
[2019-11-24] MEDS: POLYETHYLENE GLYCOL POWDER 17 GM PACK PO SCH (10:11)
[2019-11-24 12:05] VITALS: BP 138/77
== END 2019-11-24 13:22 | disposition home or self-care (01) | DRG 157 ==
LOC: N.ED 14:27 → N.EDINP 17:21 → SUATTDRO 17:21 → N.2E 18:44
PROVIDERS: ADMIT Internal Medicine; ATTEND Hospitalist